=== PATIENT | female | born 1975 | race American Indian/Alaskan Native ===

== ENCOUNTER 2019-01-15 14:37 | Outpatient (CLI) | payer OTHER ==
--- NOTE | 2019-01-15 15:19 | XRay Report ---
Bilateral knees 4 views INDICATION: Bilateral knee pain IMPRESSION: Moderate tricompartmental degenerative osteoarthrosis involving both knees, primarily inv olving the medial femorotibial compartments symmetrically. Small bilateral knee effusions. Signer Name: Jet Saunders MD Signed: 01/15/2019 3:15 PM Workstation Name: [id number]
== END 2019-01-15 14:38 | disposition home or self-care (01) ==
LOC: XRAY 14:37
PROVIDERS: ATTEND Internal Medicine
DX: Z02.71 Encounter for disability determination (principal); M17.0 Bilateral primary osteoarthritis of knee

== ENCOUNTER 2019-04-09 09:54 | Emergency (ER) | payer MEDICARE ==
[2019-04-09 10:08] VITALS: BP 154/106
[2019-04-09] MEDS ORDERED: CYCLOBENZAPRINE 10 MG TAB PO ONE (10:47)
[2019-04-09] MEDS ORDERED: IBUPROFEN 800 MG TAB PO ONE (10:47)
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
== END 2019-04-09 12:01 | disposition home or self-care (01) ==
LOC: ED 09:54
DX: M54.2 Cervicalgia (principal); R51 Headache; F17.200 Nicotine dependence, unspecified, uncomplicated; M19.90 Unspecified osteoarthritis, unspecified site; R03.0 Elevated blood-pressure reading, without diagnosis of hypertension